=== PATIENT | male | born 1970 | race Hispanic/Latino ===

== ENCOUNTER 2019-01-04 22:59 | Inpatient (IN) | payer SELFPAY ==
[2019-01-05] MEDS ORDERED: PERCOCET 5/325 PO ONE (01:58)
--- NOTE | 2019-01-05 02:21 | Emergency Department Report ---
Abscess Boil HPI - HPI Chief Complaint: Skin/Abscess/Foreign Body Stated Complaint: ABCESS Time Seen by Provider: 01/05/19 01:54 Duration: 3 Days Location: Sacral/Pilonidal Severity: Severe (9/10) History: Yes Pain, No Fever, No Purulent Drainage, No Numbness, No Foreign Body, No Previous History, No Insect Bite HPI: 48-year-old male presents to the emergency room for an abscess on his left gluteal cleft 3 days. Patient reports that he rides a bike and had changed his seat and since then he's been having some swelling and pain with redness at his buttocks. Patient denies any past medical history reports he does not take any medications on a daily basis and has no known drug allergies. Patient denies any fever chills no nausea no vomiting. Denies any purulent discharge from the abscess area. Home Medications: Home Medications Medication Instructions Recorded Confirmed Last Taken No Known Home Medications [No 01/05/19 01/05/19 Unknown Reported Home Medications] Allergies/Adverse Reactions: Allergies Allergy/AdvReac Type Severity Reaction Status Date / Time No Known Allergies Allergy Verified 06/28/16 10:36 ED Review of Systems ROS: Stated complaint: ABCESS Other details as noted in HPI Comment: All other systems reviewed and negative Constitutional: denies: chills, fever Skin: lesions ED Past Medical Hx - Past Medical History Previous Medical History?: No Hx Congestive Heart Failure: No Hx Diabetes: No Hx Asthma: No Hx COPD: No Additional medical history: cough - Surgical History Past Surgical History?: Yes Additional Surgical History: Pins to right hand - Social History Smoking Status: Never Smoker Substance Use Type: Alcohol, Marijuana - Medications Home Medications: Home Medications Medication Instructions Recorded Confirmed Last Taken Type No Known Home Medications [No 01/05/19 01/05/19 Unknown History Reported Home Medications] ED Abscess Boil Physical Exam - Exam General: Vital signs noted. No distress. Alert and acting appropriately. Size: 4 cm Exam: Yes Tenderness, Yes Surrounding Cellulites/Erythema (left buttocks), Yes Normal Neurologic Exam, Yes Normal Circulation, No Fluctuance, No Heart Murmur ED Course Vital Signs 01/04/19 23:07 Temperature 98.3 F Pulse Rate 104 H Respiratory 18 Rate Blood Pressure 119/70 O2 Sat by Pulse 98 Oximetry Critical Care Time: Yes Critical care time in (mins) excluding proc time.: 30 Critical care attestation.: If time is entered above; I have spent that time in minutes in the direct care of this critically ill patient, excluding procedure time. ED Medical Decision Making - Lab Data Result diagrams: 01/05/19 02:59 01/05/19 02:59 - Radiology Data Radiology results: report reviewed Patient: CARLOS GARZA MR#: [id number] : 1970 Acct:[id number] Age/Sex: 48 / M ADM Date: 01/04/19 Loc: ED Attending Dr: Ordering Physician: MANJIT GONZALEZ Date of Service: 01/05/19 Procedure(s): CT pelvis w con Accession Number(s): [id number] cc: MANJIT GONZALEZ FINAL REPORT PROCEDURE: CT PELVIS W CON TECHNIQUE: Computerized axial tomography of the pelvis was performed following the IV injection of iodinated nonionic contrast. HISTORY: large abscess COMPARISON: No prior studies are available for comparison. TECHNICAL QUALITY: Satisfactory. FINDINGS: Imaged small and large intestine: Normal . Genitourinary system: Normal . Lymph nodes/mesentery: Normal . Pelvic masses: None . Intraperitoneal fluid: None . There is a fluid collection identified in the left medial lower buttock region extending into the left posterior upper thigh. This area has some septation and measures 4.7 x 2.4 by 2.5 centimeters. This is surrounded by inflammatory cellulitis in the soft tissues. Skin thickening in the lower medial buttock region is noted. There is a small area of skin ulceration. Decubitus ulcer in this region is possible.. IMPRESSION: Impression There is an abscess identified in the left buttock region posteriorly extending down into the upper posterior thigh soft tissues. There is cellulitis surrounding this fluid collection. The fluid collection has septations and measures up 4.7 centimeters. Area of skin ulceration as well as a area of skin thickening is noted. Transcribed By: [facility] Dictated By: JEANNIE ISIDRO MD Electronically Authenticated By: JEANNIE ISIDRO MD Signed Date/Time: 01/05/19507 DD/ 5 TD/TT: 01/05/19505 - Medical Decision Making Patient has been evaluated by this provider in fast track. Patient was given a Percocet prior to attempting to incision and drain. Attempted to incision and drain abscess but no fluid or purulent discharge return. CT of pelvis with contrast was ordered and obtained CT showed the patient has an abscess in the left buttocks region posteriorly extending down into the upper posterior thigh with soft tissue there is cellulitis surrounding this fluid collection. Measurement is 4.7 x 2.4 x 2.5. Spoke to Dr. Matthews surgery he will like the patient to be admitted patient is nothing by mouth, lactic acid ESR blood cultures and Zosyn has been ordered. Spoke to hospitalist regarding admission. Consult has been placed for Dr. Matthews orders have been placed. ED Disposition Clinical Impression: Abscess of buttock, right, Cellulitis of buttock, left Disposition: [id number] OP ADMIT IP TO THIS HOSP Is pt being admited?: Yes Does the pt Need Aspirin: No Condition: Stable Referrals: SURYA RANDHAWA MD [Primary Care Provider] - 3-5 Days
[2019-01-05 03:17] LABS: Basophils % (Auto) 0.7 % (0.0-1.8); Eosinophils # (Auto) 0.1 K/mm3 (0.0-0.4); Eosinophils % (Auto) 1.8 % (0.0-4.3); Hematocrit 38.7 % (35.5-45.6); Hemoglobin 13.6 gm/dl (11.8-15.2); Lymphocytes # (Auto) 1.4 K/mm3 (1.2-5.4); Mean Corpuscular HGB Conc 35 % (32-34); Mean Corpuscular Volume 94 fl (84-94); Monocytes # (Auto) 0.8 K/mm3 (0.0-0.8); Monocytes % (Auto) 12.9 % (0.0-7.3); Platelet Count 319 K/mm3 (140-440); Red Blood Count 4.11 M/mm3 (3.65-5.03); Red Cell Distribution Width 12.8 % (13.2-15.2)
[2019-01-05 03:44] LABS: BUN/Creatinine Ratio 11; Blood Urea Nitrogen 8 mg/dL (9-20); Calcium 8.6 mg/dL (8.4-10.2); Hemolysis Index 8
--- NOTE | 2019-01-05 05:08 | Cat Scan Report ---
FINAL REPORT PROCEDURE: CT PELVIS W CON TECHNIQUE: Computerized axial tomography of the pelvis was performed following the IV injection of i odinated nonionic contrast. HISTORY: large abscess COMPARISON: No prior studies are available for comparison. TECHNICAL QUALITY: Satisfactory. FINDINGS: Imaged small and large intestine: Normal . Genitourinary system: Normal . Lymph nodes/mesentery: Normal . Pelvic masses: None . Intraperitoneal fluid: None . There is a fluid collection identified in the left medial lower buttock region extending into the lef t posterior upper thigh. This area has some septation and measures 4.7 x 2.4 by 2.5 centimeters. This is surrounded by inflammatory cellulitis in the soft tissues. Skin thickening in the lower medial bu ttock region is noted. There is a small area of skin ulceration. Decubitus ulcer in this region is po ssible.. IMPRESSION: Impression There is an abscess identified in the left buttock region posteriorly extending down into the upper p osterior thigh soft tissues. There is cellulitis surrounding this fluid collection. The fluid collect ion has septations and measures up 4.7 centimeters. Area of skin ulceration as well as a area of skin thickening is noted.
[2019-01-05] MEDS ORDERED: ZOSYN/NS 4.5GM/100ML 4.5 GM/100 ML VIAL IV ONE (05:29)
[2019-01-05] MEDS ORDERED: ZOFRAN IV ONE (06:05)
[2019-01-05] MEDS ORDERED: MORPHINE IV ONE (06:05)
--- NOTE | 2019-01-05 07:15 | History and Physical Report ---
History of Present Illness Date of examination: 01/05/19 Chief complaint: Pain and swelling in the left buttock History of present illness: 48-year-old male with no significant past medical history presented to the emergency department complaining of pain and swelling on the left buttock over the last 5 days. 5 days ago the patient's change his bike seat and it was not well positioned. The patient drive for and hour for job interview and he started to have pain and swelling. Pain is swelling was getting worse yesterday and he presented to the emergency department. Patient denied fever, chills, nausea, vomiting. In the emergency department and CAT scan was done and showed abscess. Dr Matthews was consulted and patient was started with zosyn. REVIEW OF SYSTEMS: GENERAL: no weight change, no fatigue, no fever HEAD: no head ache EYES: no blurry vision, no acute visual loss EARS: no hearing loss, no discharge, no earache NOSE: no stuffiness, no sneezing, no discharge MOUTH, THROAT AND NECK: no bleeding gums, no sore throat, no swollen neck CARDIAC: no palpitations, no dyspnea on exertion, no orthopnea, no PND, no edema, no chest pain RESPIRATORY: no shortness of breath, no wheeze, no cough, no sputum, no hemoptysis, no asthma GI: no decreased appetite, no nausea, no vomiting, no dysphagia, no diarrhea, no constipation, no abdominal pain URINARY: no change in frequency, no urgency, no polyuria, no hematuria, no incontinence MUSCULOSKELETAL: no muscle weakness, no pain, no joint stiffness NEUROLOGIC: no loss of sensation/numbness, no tingling, no tremors, no weakness/paralysis HEMATOLOGIC: no anemia, no easy bruising SKIN: no rashes ENDOCRINE: no heat/cold intolerance, no polyuria, no polydipsia, no thyroid problems, no diabetes PSYCHIATRIC: no anxiety, no depression, no suicidal ideations Past History Past Medical History: No medical history Past Surgical History: Other (quadriceps tendon repair) Social history: smoking (smokes marijuana), alcohol abuse (sixpacks per day), full code. denies: prescription drug abuse, IV drug use Family history: no significant family history Medications and Allergies Allergies Allergy/AdvReac Type Severity Reaction Status Date / Time No Known Allergies Allergy Verified 06/28/16 10:36 Home Medications Medication Instructions Recorded Confirmed Last Taken Type No Known Home Medications [No 01/05/19 01/05/19 Unknown History Reported Home Medications] Active Meds: Active Medications Piperacillin Sod/Tazobactam Sod (Zosyn/Ns 4.5gm/100ml) 4.5 gm in 100 mls @ 200 mls/hr IV Q8HR [facility]; Protocol Exam - Physical Exam Narrative exam: Not in cardiopulmonary distress. The patient appeared well nourished and normally developed. Vital signs as documented. Head exam is unremarkable. No scleral icterus . Neck is without jugular venous distension, thyromegaly, or carotid bruits. Lungs are clear to auscultation. Cardiac exam reveals regular rate and Rhythm. First and second heart sounds normal. No murmurs, rubs or gallops. Abdominal exam reveals normal bowel sounds, no masses, no organomegaly and no aortic enlargement. Extremities are nonedematous and both femoral and pedal pulses are normal. Skin; clean dressing on the left buttock [employer]IX[employer]: Alert and oriented 3. No focal weakness. - Constitutional Vitals: Temp Pulse Resp BP Pulse Ox 98.4 F 99 H 16 112/57 97 01/05/19 06:38 01/05/19 06:38 01/05/19 06:38 01/05/19 06:38 01/05/19 06:38 Results - Labs CBC & Chem 7: 01/05/19 02:59 01/05/19 16:16 Labs: Laboratory Last Values WBC 6.2 K/mm3 (4.5-11.0) 01/05/19 02:59 RBC 4.11 M/mm3 (3.65-5.03) 01/05/19 02:59 Hgb 13.6 gm/dl (11.8-15.2) 01/05/19 02:59 Hct 38.7 % (35.5-45.6) 01/05/19 02:59 MCV 94 fl (84-94) 01/05/19 02:59 MCH 33 pg (28-32) H 01/05/19 02:59 MCHC 35 % (32-34) H 01/05/19 02:59 RDW 12.8 % (13.2-15.2) L 01/05/19 02:59 Plt Count 319 K/mm3 (140-440) 01/05/19 02:59 Lymph % (Auto) 22.0 % (13.4-35.0) 01/05/19 02:59 [place] % (Auto) 12.9 % (0.0-7.3) H 01/05/19 02:59 Eos % (Auto) 1.8 % (0.0-4.3) 01/05/19 02:59 Baso % (Auto) 0.7 % (0.0-1.8) 01/05/19 02:59 Lymph # 1.4 K/mm3 (1.2-5.4) 01/05/19 02:59 [place] # 0.8 K/mm3 (0.0-0.8) 01/05/19 02:59 Eos # 0.1 K/mm3 (0.0-0.4) 01/05/19 02:59 Baso # 0.0 K/mm3 (0.0-0.1) 01/05/19 02:59 Seg Neutrophils % 62.6 % (40.0-70.0) 01/05/19 02:59 Seg Neutrophils # 3.9 K/mm3 (1.8-7.7) 01/05/19 02:59 ESR 16 mm/Hr (0-20) 01/05/19 05:50 Sodium 136 mmol/L (137-145) L 01/05/19 02:59 Potassium 3.2 mmol/L (3.6-5.0) L 01/05/19 02:59 Chloride 96.6 mmol/L (98-107) L 01/05/19 02:59 Carbon Dioxide 26 mmol/L (22-30) 01/05/19 02:59 Anion Gap 17 mmol/L 01/05/19 02:59 BUN 8 mg/dL (9-20) L 01/05/19 02:59 Creatinine 0.7 mg/dL (0.8-1.5) L 01/05/19 02:59 Estimated GFR > 60 ml/min 01/05/19 02:59 BUN/Creatinine Ratio 11 % 01/05/19 02:59 Glucose 124 mg/dL (75-100) H 01/05/19 02:59 Lactic Acid 1.50 mmol/L (0.7-2.0) 01/05/19 05:50 Calcium 8.6 mg/dL (8.4-10.2) 01/05/19 02:59 Assessment and Plan Assessment and plan: Left gluteal abscess - CT was positive left guteal abscess with extension - On IV zosyn - Dr Matthews consulted and incision and drainage - Pain control DVT prophylaxis Advance Directives: Yes VTE prophylaxis?: Chemical Plan of care discussed with patient/family: Yes
--- NOTE | 2019-01-05 08:55 | Consultation ---
History of Present Illness Consult date: 01/05/19 Reason for consult: other (buttock abscess) Requesting physician: CHATA MARTIN Chief complaint: left buttock pain - History of present illness History of present illness: 48yo M presents with acute onset of left buttock pain to the emergency room. Patient reports that he changed his bicycle seat last week Saturday. A couple days later he noticed the beginnings of left buttock pain which he attributed to soreness. The pain continued to progress to the point that he could not tolerate it and came last night to the emergency room for evaluation and treatment. Denies any fevers, chills, nausea, vomiting. He has never had anything like this before. The otherwise feels well. The pain is restricted to the buttock. It does not involve the thigh or the scrotum. 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 denies: smoking, prescription drug abuse, IV drug use Family history: no significant family history Medications and Allergies Allergies Allergy/AdvReac Type Severity Reaction Status Date / Time No Known Allergies Allergy Verified 06/28/16 10:36 Home Medications Medication Instructions Recorded Confirmed Last Taken Type No Known Home Medications [No 01/05/19 01/05/19 Unknown History Reported Home Medications] Active Meds: Active Medications Piperacillin Sod/Tazobactam Sod (Zosyn/Ns 4.5gm/100ml) 4.5 gm in 100 mls @ 200 mls/hr IV Q8HR [facility]; Protocol Review of Systems - Constitutional no fever, no chills, no weakness, no chronic pain - Cardiovascular no chest pain, no shortness of breath - Respiratory no cough - Gastrointestinal no abdominal pain, no nausea, no vomiting - Genitourinary no dysuria - Muskuloskeletal other (left buttock pain and swelling), no low back pain, no shooting leg pain - Integumentary redness, boils Exam Vital Signs Temp Pulse Resp BP Pulse Ox 98.3 F 104 H 18 119/70 98 01/04/19 23:07 01/04/19 23:07 01/04/19 23:07 01/04/19 23:07 01/04/19 23:07 - General physical appearance Positive: no distress, no pain - Eyes Positive: PERRL - Respiratory Positive: normal expansion, normal respiratory effort, clear to auscultation - Cardiovascular Rhythm: regular - Abdomen Abdomen: Present: soft. Absent: tender - Integumentary other (+swelling and erythema on the left lower buttock - about 10 cm in diameter. No active drainage. No extension to scrotum or left inner thigh) - Neurologic Neurologic: alert and oriented to time, place and person - Psychiatric Psychiatric: appropriate mood/affect, intact judgment & insight Results - Labs 01/05/19 02:59 01/05/19 02:59 Abnormal lab results 01/05/19 01/05/19 Range/Units 02:59 02:59 MCH 33 H (28-32) pg MCHC 35 H (32-34) % RDW 12.8 L (13.2-15.2) % [place] % (Auto) 12.9 H (0.0-7.3) % Sodium 136 L (137-145) mmol/L Potassium 3.2 L (3.6-5.0) mmol/L Chloride 96.6 L (98-107) mmol/L BUN 8 L (9-20) mg/dL Creatinine 0.7 L (0.8-1.5) mg/dL Glucose 124 H (75-100) mg/dL Diabetes panel 01/05/19 Range/Units 02:59 Sodium 136 L (137-145) mmol/L Potassium 3.2 L (3.6-5.0) mmol/L Chloride 96.6 L (98-107) mmol/L Carbon Dioxide 26 (22-30) mmol/L BUN 8 L (9-20) mg/dL Creatinine 0.7 L (0.8-1.5) mg/dL Glucose 124 H (75-100) mg/dL Calcium 8.6 (8.4-10.2) mg/dL Calcium panel 01/05/19 Range/Units 02:59 Calcium 8.6 (8.4-10.2) mg/dL Pituitary panel 01/05/19 Range/Units 02:59 Sodium 136 L (137-145) mmol/L Potassium 3.2 L (3.6-5.0) mmol/L Chloride 96.6 L (98-107) mmol/L Carbon Dioxide 26 (22-30) mmol/L BUN 8 L (9-20) mg/dL Creatinine 0.7 L (0.8-1.5) mg/dL Glucose 124 H (75-100) mg/dL Calcium 8.6 (8.4-10.2) mg/dL Adrenal panel 01/05/19 Range/Units 02:59 Sodium 136 L (137-145) mmol/L Potassium 3.2 L (3.6-5.0) mmol/L Chloride 96.6 L (98-107) mmol/L Carbon Dioxide 26 (22-30) mmol/L BUN 8 L (9-20) mg/dL Creatinine 0.7 L (0.8-1.5) mg/dL Glucose 124 H (75-100) mg/dL Calcium 8.6 (8.4-10.2) mg/dL - Imaging CT scan - abdomen: report reviewed, image reviewed CT scan - pelvis: report reviewed, image reviewed Assessment and Plan - Patient Problems (1) Abscess of buttock, left Current Visit: Yes Status: Acute Plan to address problem: Pt stable. Based on exam and CT, pt has a large abscess in the left buttock that is slightly deep. It would be difficult to adequate drain this at the bedside. Therefore, I have recommended I&D in the OR. Discussed abx as an alternative. Pt wishes to proceed with surgery. Procedure, risks, benefits discussed. All questions answered. Consent obtained. Proceed to OR today when a room is tyree ilable. Please call with questions. Time=30min
[2019-01-05] MEDS: LACTATED RINGERS 1,000 ML IV SCH ×2 (11:20→15:27)
[2019-01-05] MEDS ORDERED: NEURONTIN PO NR (11:30)
[2019-01-05] MEDS ORDERED: VERSED IV NR (11:30)
--- NOTE | 2019-01-05 11:36 | Anesthesia Consultation ---
Anesthesia Consult and Med Hx Date of service: 01/05/19 - Airway Anesthetic Teeth Evaluation: Good ROM Head & Neck: Adequate Mental/Hyoid Distance: Adequate Mallampati Class: Class II Intubation Access Assessment: Good - Pulmonary Exam CTA: Yes - Cardiac Exam Cardiac Exam: RRR - Pre-Operative Health Status ASA Pre-Surgery Classification: ASA1 Proposed Anesthetic Plan: General - Pulmonary Hx Asthma: No COPD: No Hx Pneumonia: No - Endocrine Hx End Stage Renal Disease: No - Additional Comments Anesthesia Medical History Comments: otherwise healthy, active 48 y.o.m. with enlarged gluteal abscess scheduled for I&D
--- NOTE | 2019-01-05 11:40 | Anesthesia Day of Surgery ---
Anesthesia Day of Surgery - Day of Surgery Patient Examined: Yes Patient H&P Reviewed: Yes Patient is NPO: Yes Beta Blockers: No Cardiac Clearance: No Pulmonary Clearance: No Dhaval's Test: N/A
[2019-01-05] MEDS ORDERED: SUBLIMAZE IV PRN (11:59)
[2019-01-05] MEDS ORDERED: ZOFRAN IV PRN (11:59)
[2019-01-05] MEDS ORDERED: TORADOL IV PRN (11:59)
[2019-01-05] MEDS ORDERED: SUBLIMAZE IV ONE ×2 (12:00→13:30)
[2019-01-05] MEDS ORDERED: DIPRIVAN 10 MG/ML IV ONE (13:09)
[2019-01-05] MEDS ORDERED: ZOFRAN ONE (13:09)
[2019-01-05] MEDS ORDERED: DECADRON ONE (13:09)
[2019-01-05] MEDS ORDERED: SUBLIMAZE ONE (13:12)
[2019-01-05] MEDS ORDERED: XYLOCAINE CARDIAC IV ONE (13:42)
[2019-01-05] MEDS ORDERED: TORADOL ONE (13:42)
--- NOTE | 2019-01-05 13:50 | Post Operative Note ---
Date of procedure: 01/05/19 (dictation:[id number]) Pre-op diagnosis: left buttock abscess Post-op diagnosis: same Findings: large amount of purulent material in the deep subq space of the left buttock Procedure: I&D of left buttock abscess Anesthesia: GETA Surgeon: ARIAN LEMUS Estimated blood loss: minimal (10cc) Pathology: list (culture swabs) Specimen disposition: to lab Condition: stable Disposition: PACU
[2019-01-05] MEDS: ZOSYN/NS 4.5GM/100ML 4.5 GM/100 ML VIAL IV SCH ×2 (14:00→22:09)
--- NOTE | 2019-01-05 14:14 | Operative Report ---
PREOPERATIVE DIAGNOSIS: Left buttock abscess. POSTOPERATIVE DIAGNOSIS: Left buttock abscess. PROCEDURE: Incision and drainage of left buttock abscess. ATTENDING SURGEON: Edgardo Matthews MD ANESTHESIA: General. ESTIMATED BLOOD LOSS: Minimal, 10 mL. FLUIDS: 900 mL. FINDINGS: Large amount of purulent material in the subcutaneous space of the left buttock. There was no communication to the anorectal area. No other drainage points were seen. Mild loculation was noted within the cavity. SPECIMENS: Culture swabs. DRAINS: 1-inch Marcella drain. COMPLICATIONS: None. DISPOSITION: Stable, transferred to Recovery Room. INDICATIONS: This is a 48-year-old male who presented with a 4-5 day history of progressively worsening left buttock swelling and pain. The patient is assessed to have a left buttock abscess. CT scan was done by the Emergency Room to document the full extent. The patient was assessed to be in need for incision and drainage in the operating room due to the complexity of the abscess appearance. Procedure, risks, benefits were explained to the patient. Risks included but were not limited to infection, bleeding, pain, injury to surrounding structures, possible need for further procedures in the future. The patient understood and consented. OPERATIVE NOTE: The patient was brought to the operating room and placed on the table in supine position. After adequate general anesthesia was established, the patient was placed in the left lateral decubitus position. All pressure points were padded. Axillary roll was then placed. Sterile prep and drape was performed. Antibiotics had already been given by the Emergency Department. SCDs were in place. Time-out was called. I used the incision that was already made by the Emergency Room and extended it in a radial fashion laterally to about 2.5-3 cm in total length. Using a hemostat, I was able to probe into the deep subcutaneous space and identified the purulent pocket. Cultures were taken. I inserted a finger to break up all the loculations and identify the entire cavity. It appeared to extend inferomedially from where the incision was. There was not much going laterally or superiorly. There clearly did not appear to be any communication to the anorectal area. Of note, on exam, the anal area appeared normal. We thoroughly irrigated out and suctioned the cavity and then I placed a 1-inch Hamer drain and secured it with two 3-0 nylon sutures to hopefully minimize the risk that it would fall out. Skin was cleaned and dried, dressings were placed. The patient tolerated procedure well. There were no complications. All counts were correct at the end of the case. JOB# [id number] NIGEL/GWYN
[2019-01-05 17:22] LABS: BUN/Creatinine Ratio 12; Blood Urea Nitrogen 7 mg/dL (9-20); Calcium 8.4 mg/dL (8.4-10.2); Hemolysis Index 141
[2019-01-05] MEDS ORDERED: PERCOCET 5/325 PO PRN (17:43)
[2019-01-05] MEDS ORDERED: LOVENOX SUB-Q SCH (22:00)
[2019-01-06] MEDS: ZOSYN/NS 4.5GM/100ML 4.5 GM/100 ML VIAL IV SCH ×2 (05:51→13:46)
[2019-01-06 06:08] LABS: BUN/Creatinine Ratio 15; Blood Urea Nitrogen 9 mg/dL (9-20); Calcium 8.8 mg/dL (8.4-10.2); Hemolysis Index 30
--- NOTE | 2019-01-06 09:10 | Progress Note ---
Assessment and Plan - Patient Problems (1) Abscess of buttock, left Current Visit: Yes Status: Acute Plan to address problem: Pt stable. s/p I&D of left buttock abscess - 01/05/19 - POD#1. Pt looks well. Erythema is decreased today. Ok to d/c home. 1) Sitz baths BID and prn after BMs 2) Abx per Hospitalist. Would treat for 7-10days 3) f/u in office in 2 weeks 4) try to keep drain in place. Please call with questions. Time=10min Subjective Date of service: 01/06/19 Patient Reports: Positive: no new complaints, still having pain, tolerating a regular diet Objective Vital Signs - 12hr 01/05/19 01/06/19 23:47 05:52 Temperature 97.5 F L 98.0 F Pulse Rate 77 74 Respiratory 16 20 Rate Blood Pressure 111/64 123/78 O2 Sat by Pulse 97 100 Oximetry - General physical appearance no distress, no pain, other (looks good) - Respiratory normal expansion, normal respiratory effort - Integumentary other (erythema is decreased. Drain in place. ) - Psychiatric oriented to time, oriented to person, oriented to place, speech is normal, memory intact - Labs 01/05/19 02:59 01/06/19 04:59 Diabetes panel 01/05/19 01/06/19 Range/Units 16:16 04:59 Sodium 133 L 136 L (137-145) mmol/L Potassium 4.2 D 4.3 (3.6-5.0) mmol/L Chloride 101.1 99.1 (98-107) mmol/L Carbon Dioxide 22 28 (22-30) mmol/L BUN 7 L 9 (9-20) mg/dL Creatinine 0.6 L 0.6 L (0.8-1.5) mg/dL Glucose 102 H 148 H (75-100) mg/dL Calcium 8.4 8.8 (8.4-10.2) mg/dL Calcium panel 01/05/19 01/06/19 Range/Units 16:16 04:59 Calcium 8.4 8.8 (8.4-10.2) mg/dL Pituitary panel 01/05/19 01/06/19 Range/Units 16:16 04:59 Sodium 133 L 136 L (137-145) mmol/L Potassium 4.2 D 4.3 (3.6-5.0) mmol/L Chloride 101.1 99.1 (98-107) mmol/L Carbon Dioxide 22 28 (22-30) mmol/L BUN 7 L 9 (9-20) mg/dL Creatinine 0.6 L 0.6 L (0.8-1.5) mg/dL Glucose 102 H 148 H (75-100) mg/dL Calcium 8.4 8.8 (8.4-10.2) mg/dL Adrenal panel 01/05/19 01/06/19 Range/Units 16:16 04:59 Sodium 133 L 136 L (137-145) mmol/L Potassium 4.2 D 4.3 (3.6-5.0) mmol/L Chloride 101.1 99.1 (98-107) mmol/L Carbon Dioxide 22 28 (22-30) mmol/L BUN 7 L 9 (9-20) mg/dL Creatinine 0.6 L 0.6 L (0.8-1.5) mg/dL Glucose 102 H 148 H (75-100) mg/dL Calcium 8.4 8.8 (8.4-10.2) mg/dL
--- NOTE | 2019-01-06 11:01 | Discharge Summary ---
Providers - Providers Date of Admission: 01/05/19 06:41 Attending physician: CHACE FRANCE MD 01/05/19 05:50 Consult to Physician [CONS] Routine Comment: Zully spoke with Dr. Lemus @ 0546 Consulting Provider: ARIAN LEMUS Physician Instructions: Reason For Exam: left buttock abscess with surrounding cellulitis Primary care physician: [facility], Hospitalization Reason for admission: Left gluteal abscess Condition: Stable Hospital course: 48-year-old male with no significant past medical history presented to the emergency department complaining of pain and swelling on the left buttock over the last 5 days. 5 days ago the patient's change his bike seat and it was not well positioned. The patient drive for and hour for job interview and he started to have pain and swelling. Pain is swelling was getting worse yesterday and he presented to the emergency department. Patient denied fever, chills, nausea, vomiting. In the emergency department and CAT scan was done and showed abscess. Surgery was consulted and patient was started with zosyn. Patient underwent a successfull I&D of left buttock abscess. On re-valuation, erythema had decreased nad the patient is stable for discharge. FOLLOW UP APPT AND INSTRUCTIONS INCLUDING WHEN TO RETURN TO WORK DISCUSSED IN DETAIL Discharge Diagnosis Left gluteal abscess Hypokalemia Disposition: DC-01 TO HOME OR SELFCARE Time spent for discharge: 35 mins Core Measure Documentation - Palliative Care Palliative Care/ Comfort Measures: Not Applicable - Core Measures Any of the following diagnoses?: none Exam - Physical Exam Narrative exam: VITAL SIGNS: Reviewed. GENERAL: The patient appeared well nourished and normally developed. Vital signs as documented. HEAD: No signs of head trauma. EYES: Pupils are equal. Extraocular motions intact. EARS: Hearing grossly intact. MOUTH: Oropharynx is normal. NECK: No adenopathy, no JVD. CHEST: Chest with clear breath sounds bilaterally. No wheezes, rales, or rhonchi. CARDIAC: Regular rate and rhythm. S1 and S2, without murmurs, gallops, or rubs. VASCULAR: No Edema. Peripheral pulses normal and equal in all extremities. ABDOMEN: Soft, without detectable tenderness. No sign of distention. No rebound or guarding, and no masses palpated. Bowel Sounds normal. MUSCULOSKELETAL: Good range of motion of all major joints. Extremities without clubbing, cyanosis or edema. NEUROLOGIC EXAM: Alert and oriented x 3. No focal sensory or strength deficits. Speech normal. Follows commands. PSYCHIATRIC: Mood normal. SKIN: Left gluteal region with dressing intact and no overt drainage - Constitutional Vitals: Temp Pulse Resp BP Pulse Ox 98.0 F 74 20 123/78 100 01/06/19 05:52 01/06/19 05:52 01/06/19 05:52 01/06/19 05:52 01/06/19 05:52 Plan Wound: per your surgeon's advice, per wound nurse instructions, drain care as instructed Additional Instructions: 1) Sitz baths BID and prn after BMs. 2) Abx for 10days. 3) f/u in office in 2 weeks. 4) try to keep drain in place. Follow up with: FRANCOISE MARLEYLACKAWAXEN MD JESSICA [Primary Care Provider] - 3-5 Days ARIAN LEMUS MD [Staff Physician] - 14 Days Forms: Work/School Release Form Prescriptions: Amoxicillin/Potassium Clav [Augmentin 875-125 Tablet] 1 each PO BID #20 tablet oxyCODONE /ACETAMINOPHEN [Percocet 5/325 mg] 1 tab PO Q6H PRN #14 tablet PRN Reason: Pain, Moderate (4-6)
[2019-01-06] MEDS ORDERED: AFLURIA QUAD 2018-2019 SYRINGE IM ONE (12:00)
[2019-01-06 12:04] VITALS: BP 144/77
== END 2019-01-06 15:30 | disposition home or self-care (01) | DRG 581 ==
LOC: ED 22:59 → 3A 01-05 06:41
PROVIDERS: ADMIT Internal Medicine; ATTEND Internal Medicine
PROC: 0J990ZZ Drainage of Buttock Subcutaneous Tissue and Fascia, Open Approach (ICD-10-PCS; principal; 2019-01-05)
DX: L02.31 Cutaneous abscess of buttock (principal); F12.10 Cannabis abuse, uncomplicated; F10.10 Alcohol abuse, uncomplicated; Y90.0 Blood alcohol level of less than 20 mg/100 ml; L03.317 Cellulitis of buttock; E87.6 Hypokalemia
CPT/HCPCS: 36415; 72193; 80048; 82140; 85025; 85652; 87040; 87075; 87076; 87116; 87186; 90686; G0378; J1100; J1650; J1885; J2001; J2250; J2270; J2405; J2543; J2704; J3010; J7120; Q9967

== ENCOUNTER 2019-01-08 18:15 | Emergency (ER) | payer SELFPAY ==
--- NOTE | 2019-01-08 19:10 | Emergency Department Report ---
Blank Doc - Documentation Documentation: This is a 48-year-old male that presents with left side buttock abscess. Lulu ent stated was her 2 days go and had an I/D. Stated did not fill his antibiotics or pain medications. Is there today due to pain. This initial assessment diagnostic orders/clinical plan/treatment(s) is/are subject to change based on patient's health status, clinical progression and re- assessment by fellow clinical providers in the ED. Further treatment and workup at subsequent clinical providers discretion. Patient/guardians urged not to elope from ED s their condition may be serious if not clinically assessed and managed. Initial orders include: 1-Patient sent to [facility] for further evaluation and treatment
[2019-01-08 19:12] VITALS: BP 127/88
[2019-01-08] MEDS ORDERED: ROCEPHIN IM STA (20:46)
[2019-01-08] MEDS ORDERED: XYLOCAINE 1% MPF 5 mL INFILTRATI ONE (20:46)
--- NOTE | 2019-01-08 20:51 | Emergency Department Report ---
- General Chief Complaint: Skin/Abscess/Foreign Body Stated Complaint: ALOT OF PAIN/SWELLING AFTER SURGERY Time Seen by Provider: 01/08/19 19:08 Source: patient Mode of arrival: Ambulatory Limitations: No Limitations - History of Present Illness Initial Comments: 48-year-old male, status post incision and drainage of a left gluteal abscess by Dr. Lemus 3 days ago where a drain was placed and is to follow-up in one week. Was prescribed some antibodies and pain medication. 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 Reports feeling a sensation of pressure to the region as well but no fever or door discharge. His knowledge. The area hurts with palpation. Patient Tetanus UTD: Yes Associated Symptoms: pain - Related Data Previous Rx's Medication Instructions Recorded Last Taken Type Amoxicillin/Potassium Clav 1 each PO BID #20 tablet 01/06/19 Unknown Rx [Augmentin 875-125 Tablet] oxyCODONE /ACETAMINOPHEN [Percocet 1 tab PO Q6H PRN #14 tablet 01/06/19 Unknown Rx 5/325 mg] Allergies Allergy/AdvReac Type Severity Reaction Status Date / Time No Known Allergies Allergy Verified 01/08/19 18:19 ED Review of Systems ROS: Stated complaint: ALOT OF PAIN/SWELLING AFTER SURGERY Other details as noted in HPI Constitutional: denies: chills, fever Eyes: denies: eye pain, eye discharge, vision change ENT: denies: ear pain, throat pain Respiratory: denies: cough, shortness of breath, wheezing Cardiovascular: denies: chest pain, palpitations Endocrine: no symptoms reported Gastrointestinal: denies: abdominal pain, nausea, diarrhea Genitourinary: denies: urgency, dysuria Musculoskeletal: denies: back pain, joint swelling, arthralgia Skin: denies: rash, lesions Neurological: denies: headache, weakness, paresthesias Psychiatric: denies: anxiety, depression Hematological/Lymphatic: denies: easy bleeding, easy bruising ED Past Medical Hx - Past Medical History Hx Congestive Heart Failure: No Hx Diabetes: No Hx Asthma: No Hx COPD: No Additional medical history: cough - Surgical History Additional Surgical History: Pins to right hand, Rectal Abscess - Social History Smoking Status: Never Smoker Substance Use Type: None - Medications Home Medications: Home Medications Medication Instructions Recorded Confirmed Last Taken Type Amoxicillin/Potassium Clav 1 each PO BID #20 tablet 01/06/19 Unknown Rx [Augmentin 875-125 Tablet] oxyCODONE /ACETAMINOPHEN [Percocet 1 tab PO Q6H PRN #14 tablet 01/06/19 Unknown Rx 5/325 mg] ED Physical Exam - General Limitations: No Limitations General appearance: alert, in no apparent distress - Head Head exam: Present: atraumatic, normocephalic - Eye Eye exam: Present: normal appearance, PERRL, EOMI - ENT ENT exam: Present: mucous membranes moist - Neck Neck exam: Present: normal inspection - Respiratory Respiratory exam: Present: normal lung sounds bilaterally. Absent: respiratory distress - Cardiovascular Cardiovascular Exam: Present: regular rate, normal rhythm. Absent: systolic murmur, diastolic murmur, rubs, gallop - GI/Abdominal GI/Abdominal exam: Present: soft, normal bowel sounds - Rectal Rectal exam: Present: deferred - Extremities Exam Extremities exam: Present: normal inspection, full ROM, normal capillary refill - Back Exam Back exam: Present: normal inspection. Absent: muscle spasm, vertebral tenderness - Neurological Exam Neurological exam: Present: alert, oriented X3, CN II-XII intact, normal gait. Absent: motor sensory deficit - Psychiatric Psychiatric exam: Present: normal affect, normal mood - Skin Skin exam: Present: warm, dry, intact, normal color, erythema (erythema to the left gluteal region around the incision and drainage area drain still in place and sutures still in place. No active discharge is appreciated. No lymphangitis. Minimal area of induration noted.). Absent: rash ED Course Vital Signs 01/08/19 01/08/19 19:05 19:09 Temperature 98.0 F 98 F Pulse Rate 93 H 95 H Respiratory 18 18 Rate Blood Pressure 127/88 127/88 O2 Sat by Pulse 100 100 Oximetry ED Medical Decision Making - Medical Decision Making Discussed the importance of compliance with medication regimen diet and appropriate follow-up which is to for has not been vomiting. I advised him if he continues to be noncompliant that this may develop into a wall a an infectious area leading to sepsis, or even chronic pain. He reports a ful l understanding of the plan have his brother taking the [facility] to get his prescription filled. Critical care attestation.: If time is entered above; I have spent that time in minutes in the direct care of this critically ill patient, excluding procedure time. ED Disposition Clinical Impression: Cellulitis of buttock, left Disposition: DC- TO HOME OR SELFCARE Is pt being admited?: No Does the pt Need Aspirin: No Condition: Stable Instructions: Wound Healing and Your Diet (ED), Acute Wound Care (ED), Wound Infection (ED), Methicillin Resistant Staphylococcus Aureus (ED) Referrals: CLEVELAND AYAKADONNELLSON MD JESSICA [Primary Care Provider] - 3-5 Days ARIAN LEMUS MD [Staff Physician] - 3-5 Days
== END 2019-01-08 21:29 | disposition home or self-care (01) ==
LOC: ED 18:15
DX: L03.317 Cellulitis of buttock (principal); L02.31 Cutaneous abscess of buttock
CPT/HCPCS: 96372; 99282; J0696